=== PATIENT | male | born 1940 | race Caucasian/White ===

== ENCOUNTER 2021-02-25 13:44 | Emergency (ER) | payer MEDICARE, OTHER ==
[~2021-02-25] VITALS: Ht 185.4 cm; Wt 95.0 kg
[2021-02-25 14:02] VITALS: BP 120/75
[2021-02-25] MEDS ORDERED: famotidine 20mg tablet PO ONE (14:30)
[2021-02-25] MEDS ORDERED: ibuprofen tablet 400 MG TABLET PO ONE (14:30)
[2021-02-25] MEDS ORDERED: ibuprofen 200mg tablet PO ONE (14:35)
[2021-02-25] MEDS ORDERED: ACET-1059 PO (15:05)
== END 2021-02-25 15:07 | disposition home or self-care (01) ==
LOC: ER 13:45
DX: M25.561 Pain in right knee (principal); R22.41 Localized swelling, mass and lump, right lower limb; Z79.899 Other long term (current) drug therapy
CPT/HCPCS: 73564; 99284

== ENCOUNTER 2021-07-10 15:07 | Emergency (ER) | payer MEDICARE, OTHER ==
[~2021-07-10] VITALS: Ht 185.4 cm; Wt 95.0 kg
[2021-07-10 16:01] VITALS: BP 121/66
[2021-07-10] MEDS ORDERED: HYDR-3965 PO (17:53)
== END 2021-07-10 18:19 | disposition home or self-care (01) ==
LOC: ER 15:07
DX: S39.82XA Other specified injuries of lower back, initial encounter (principal); M54.5 Low back pain; G89.29 Other chronic pain; E11.9 Type 2 diabetes mellitus without complications; Z88.6 Allergy status to analgesic agent; Z88.8 Allergy status to other drugs, medicaments and biological substances; Z79.899 Other long term (current) drug therapy; W19.XXXA Unspecified fall, initial encounter; Y93.89 Activity, other specified; Y92.89 Other specified places as the place of occurrence of the external cause; Y99.8 Other external cause status
CPT/HCPCS: 71045; 72128; 72131; 93005; 99285